=== PATIENT | female | born 1970 | race African-American/Black ===

== ENCOUNTER 2020-02-29 19:31 | Emergency (ER) | payer OTHER ==
[~2020-02-29] VITALS: Ht 160 cm; Wt 73.0 kg
[2020-02-29 21:20] LABS: BASOPHILS % 0.6 % (0.0-2.0); EOSINOPHILS % 1.4 % (0.0-5.0); HEMATOCRIT. 38.6 % (36.0-48.0); HEMOGLOBIN. 12.8 g/dL (12.0-16.0); MEAN CORPUSCULAR HEMOGLOBIN 26.5 pg (28.0-32.0); MONOCYTES % 9.4 % (2.0-8.0); NEUTROPHILS % 68.6 % (40.0-76.0); PLATELET 240 x1000/uL (130-400); RED BLOOD CELL COUNT 4.83 mill/uL (4.2-5.4); RED CELL DISTRIBUTION WIDTH 15.1 % (11.6-14.6)
[2020-02-29 21:28] LABS: CHLORIDE 105 mEq/L (98-107)
[2020-02-29] MEDS ORDERED: POTASSIUM CHLORIDE 20MEQ TABLET SR PO ONE (22:15)
[2020-02-29 23:49] VITALS: BP 133/82
== END 2020-03-01 00:54 | disposition short-term general hospital (02) ==
LOC: ER 19:31 → CANBEDREQ 03-01 01:35
DX: R07.9 Chest pain, unspecified (principal); E87.6 Hypokalemia; R74.0 Nonspecific elevation of levels of transaminase and lactic acid dehydrogenase [LDH]; I10 Essential (primary) hypertension
CPT/HCPCS: 36415; 71045; 76705; 80053; 81025; 83880; 84484; 85025; 93005; 99285